=== PATIENT | male | born 1965 | race Caucasian/White ===

== ENCOUNTER → 2020-08-05 | Outpatient (CLI) | payer BC ==
--- NOTE | 2020-08-05 15:14 | REP ---
INDICATION: LT KNEE MEDIAL MENISCUS TEAR. COMPARISON: None. TECHNIQUE: Sagittal spin-echo proton density, T2 STIR and T2 FLASH. Coronal spin-echo proton density and fat suppressed proton density. Axial fat suppressed proton density. FINDINGS: The anterior and posterior horns of the lateral meniscus are within normal limits. There is grade 3 signal change seen in the posterior horn of the medial meniscus extending to the medial periphery. There is slight truncation of the posterior horn. The anterior horn is within normal limits. The anterior and posterior cruciate ligaments are intact the quadriceps and patellar tendons are intact. The medial and lateral collateral ligaments are intact. The medial and lateral patellar retinacula are intact. There is a small collection of fluid seen in the posterior compartment not between the tendons of the medial head of the gastrocnemius muscle and the semimembranosus muscle. There is thinning and irregularity of all articular cartilages. There is mild patchy T2 hyper signal seen in the proximal medial tibial metaphysis. There is a slight joint effusion. IMPRESSION: 1. The posterior horn of the medial meniscus is torn including the medial periphery and there may be a slight bucket-handle component. 2. Slight joint effusion and posterior compartmental fluid as described above. 3. Tricompartmental chondromalacia. 4. Mild proximal medial tibial marrow edema. 5. Other findings as described above. <Electronically signed by Parth Palma > 08/05/20 [id number]
== END ==
LOC: M PLAIMG 13:14
PROVIDERS: ATTEND Orthopaedic Surgery Hand Surgery
DX: S83.242A Other tear of medial meniscus, current injury, left knee, initial encounter (principal); M25.462 Effusion, left knee; M94.262 Chondromalacia, left knee; X58.XXXA Exposure to other specified factors, initial encounter; Y92.9 Unspecified place or not applicable

== ENCOUNTER → 2020-08-17 | Outpatient (CLI) | payer BC ==
--- NOTE | 2020-08-18 05:51 | ECGEPIP ---
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
== END ==
LOC: M EKG 12:28
PROVIDERS: ATTEND Orthopaedic Surgery Hand Surgery
DX: Z01.810 Encounter for preprocedural cardiovascular examination (principal); I45.10 Unspecified right bundle-branch block; R94.31 Abnormal electrocardiogram [ECG] [EKG]